=== PATIENT | male | born 2000 | race Caucasian/White ===

== ENCOUNTER 2024-03-23 11:44 | Emergency (ER) | payer BC, SELFPAY ==
[2024-03-23 11:51] VITALS: BP 118/72
--- NOTE | 2024-03-23 13:10 | ED.GENMED ---
History of Present Illness
<ENMA Bass - Last Filed: 03/23/24 16:23>
General
Chief Complaint: Medication Reaction
Source: patient
Exam Limitations: none
Time Seen by Provider: 03/23/24 12:45
Nursing documentation reviewed up to this point in time: agreed with
Travel History
Have you had any contact with someone who has COVID-19?: No
Do you have any symptoms of coronavirus? Fever > 100 degrees, chills, cough, shortness of breath, sore throat, loss of taste or smell, muscle aches, or headache?: No
History of Present Illness
History of Present Illness:
Patient is a 23-year-old male with past medical history of celiac, ulcerative colitis presents to the ER for evaluation. Patient complains of joint pain sore throat rash headache and fever since having infusion for ulcerative colitis yesterday.
He is presently treated with infliximab prescribed by his GI specialist. He initially had the first induction dose 5 weeks ago but then developed the same symptoms as today. 10 days after his first dose he had sore throat rash joint pain stiffness
headache and fevers just like today. He however was diagnosed with mono but they were not sure if it was mono and a combination of infliximab side effects. After patient's second dose yesterday and they did a full induction dose he has similar
symptoms again
Past History
<ENMA Bass - Last Filed: 03/23/24 16:23>
Past History
ED Past Medical History: None and Other (Ulcerative colitis, celiac sprue, wisdom teeth extraction)
ED Past Surgical History: None
Social History
Tobacco: Non-smoker
Alcohol: None
Drug: None
Family History
Family History: Other (Maternal grandmother with pancreatic cancer)
Phy Exam
<ENMA Bass - Last Filed: 03/23/24 16:23>
General Physical Exam
General Presentation: no apparent distress
General age: appears stated age
General Skin: warm and dry
General Habitus: normal
General Mental: alert
General Hydration: appears well hydrated
ENT Exam
ENT Exam: neck supple, pharyngeal erythema and other (No trismus no drooling)
Cardiovascular Exam
Cardiovascular Exam: tachycardia
Pulmonary Exam
Pulmonary Exam: lungs clear and no respiratory distress
Neurological Exam
Neurological Exam: alert and oriented x3
Wolf Coma Scale
Eye Opening: Spontaneous
Verbal Response: Oriented
Motor Response: Obeys Commands
GCS Total Score: 15
Musculoskeletal Exam
Musculoskeletal Exam: other (Pain with range of motion to the fingers, joints)
Skin Exam
Skin Exam: normal color, warm/dry and other (Nonspecific macular rash; no hives no itching)
Psychiatric Exam
Psychiatric Exam: normal mood/affect
<Jamarcus Barnard DO - Last Filed: 03/23/24 21:19>
Wolf Coma Scale
GCS Total Score: 15
Course
<ENMA Bass - Last Filed: 03/23/24 16:23>
Orders/Labs/Results
Orders:
Orders
03/23/24 13:25
IV Insert/Care/Rem.- Treatment PRN
03/23/24 13:35
Complete Blood Count/With Diff Urgent
Comprehensive Metabolic Panel Urgent
Sed Rate [Erythrocyte Sed Rate] Urgent
03/23/24 13:43
0.9% Sodium Chloride 1000 ml [Nss] 1,000 ml IV BOLUS
03/23/24 13:50
CRP [C-Reactive Protein] Urgent
Dexamethasone Sod Phosphate [Decadron] 10 mg IV NOW STA
03/23/24 13:51
Acetaminophen 1000MG/100Ml [Ofirmev] 1,000 mg in 100 ml IV ONCE
Acetaminophen IV Indication:: ED Narcotic Naive Pt-ONCE
Abnormal Lab Results
03/23/24 03/23/24
13:35 13:50
WBC 16.0 H 10^3/uL
(4.8-10.8)
MCV 78.0 L fL
(80.0-94.0)
Abs Immat Gran (auto) 0.1 H 10^3/uL
(0-0.05)
Absolute Neuts (auto) 11.8 H 10^3/uL
(1.4-6.5)
Absolute Monos (auto) 0.7 H 10^3/uL
(0.1-0.6)
Immature Gran % 0.6 H %
(0-0.5)
Lymphocytes % 20.3 L %
(20.5-51.1)
Sodium 134 L mmol/L
(135-145)
AST 129 H U/L
(17-59)
ALT 277 H U/L
(0-50)
Alkaline Phosphatase 749 H U/L
(38-126)
C-Reactive Protein 65.30 H mg/L
(0.0-10.00)
Albumin 3.4 L g/dl
(3.5-5.0)
03/23/24 13:35
03/23/24 13:35
Vital Signs
Initial and Last Documented VS:
Initial Vital Signs
Temp Pulse Resp BP Pulse Ox
100.3 F 113 20 118/72 99
03/23/24 11:51 03/23/24 11:51 03/23/24 11:51 03/23/24 11:51 03/23/24 11:51
Last Documented Vital Signs
Temp Pulse Resp BP Pulse Ox
100.3 F 110 20 118/76 99
03/23/24 11:51 03/23/24 16:22 03/23/24 16:22 03/23/24 16:22 03/23/24 16:22
Supply Service Worker consulted with Physician
Supply Service Worker consulted with physician?: Yes
Name of Physician Consulted: Ashley
<Jamarcus Barnard, DO - Last Filed: 03/23/24 21:19>
Orders/Labs/Results
Orders:
Orders
03/23/24 13:25
IV Insert/Care/Rem.- Treatment PRN
03/23/24 13:35
Complete Blood Count/With Diff Urgent
Comprehensive Metabolic Panel Urgent
Sed Rate [Erythrocyte Sed Rate] Urgent
03/23/24 13:43
0.9% Sodium Chloride 1000 ml [Nss] 1,000 ml IV BOLUS
03/23/24 13:50
CRP [C-Reactive Protein] Urgent
Dexamethasone Sod Phosphate [Decadron] 10 mg IV NOW STA
03/23/24 13:51
Acetaminophen 1000MG/100Ml [Ofirmev] 1,000 mg in 100 ml IV ONCE
Acetaminophen IV Indication:: ED Narcotic Naive Pt-ONCE
Abnormal Lab Results
03/23/24 03/23/24
13:35 13:50
WBC 16.0 H 10^3/uL
(4.8-10.8)
MCV 78.0 L fL
(80.0-94.0)
Abs Immat Gran (auto) 0.1 H 10^3/uL
(0-0.05)
Absolute Neuts (auto) 11.8 H 10^3/uL
(1.4-6.5)
Absolute Monos (auto) 0.7 H 10^3/uL
(0.1-0.6)
Immature Gran % 0.6 H %
(0-0.5)
Lymphocytes % 20.3 L %
(20.5-51.1)
Sodium 134 L mmol/L
(135-145)
AST 129 H U/L
(17-59)
ALT 277 H U/L
(0-50)
Alkaline Phosphatase 749 H U/L
(38-126)
C-Reactive Protein 65.30 H mg/L
(0.0-10.00)
Albumin 3.4 L g/dl
(3.5-5.0)
03/23/24 13:35
03/23/24 13:35
Vital Signs
Initial and Last Documented VS:
Initial Vital Signs
Temp Pulse Resp BP Pulse Ox
100.3 F 113 20 118/72 99
03/23/24 11:51 03/23/24 11:51 03/23/24 11:51 03/23/24 11:51 03/23/24 11:51
Last Documented Vital Signs
Temp Pulse Resp BP Pulse Ox
100.3 F 110 20 118/76 99
03/23/24 11:51 03/23/24 16:22 03/23/24 16:22 03/23/24 16:22 03/23/24 16:22
<ENMA Bass - Last Filed: 03/23/24 16:23>
MDM/Problems Addressed
Differential Diagnosis Includes:
not limited to: medication reaction viral syndrome ,mono
MDM/Problems Addressed:
Patient has documented had another induction level infusion of infliximab yesterday and complains of joint pain headache fevers rash. Patient had this same type of reaction after his first infusion with this. He is on this for ulcerative colitis
and followed by GI. Patient presents to the ER complaining of pain low-grade fever and mild erythematous rash. He has no difficulty breathing no lip or tongue swelling is nontoxic no short breath lungs clear. I spoke with GI they do report this
is likely a delayed reaction which occurs between 1 and 14 days. Patient was given IV Tylenol here for symptoms and also Decadron as recommended. As per GI we can treat patient with Tylenol 654 times a day and an antihistamine either Benadryl 50
daily or twice daily or second-generation such as loratadine 10.
Labs checked. Of note patient does have mono which was diagnosed several weeks ago and his LFTs are elevated. And in addition as per mom patient has a history of autoimmune hepatitis. Bilirubin normal. His white count is 16,000 his ESR is 20
normal kidney function and CRP elevated at 65. White count lightly react/stress response
I spoke with GI, Dr. Warren who recommended IV Decadron here patient was also given IV Tylenol here rash is improved. Patient still having some joint pain more so in his fingers. Will DC on steroid as per GI 40 mg, 30 mg, 20 mg, 10 mg 5 mg then
stop for 5 days.
Will hold off on oral Tylenol at home however because patient does have bump in LFTs
Will do antihistamine or Benadryl and steroids with close outpatient follow-up
Chronic conditions affecting care:
Autoimmune hepatitis, ulcerative colitis
<ENMA Bass - Last Filed: 03/23/24 16:23>
*Critical Care Note
Total Time (30-74mins, 75-104mins- exclusive of procedures): Not Applicable
<ENMA Bass - Last Filed: 03/23/24 16:23>
Patient Management
Discussion with other providers: [facility] (GI Dr Warren )
ED Attending Note
<ENMA Bass - Last Filed: 03/23/24 16:23>
-
Portions of this chart may have been created with voice recognition software.� Occasional wrong word or��sound alike� substitutions may have occurred due to the inherent limitations of voice recognition software.
<Jamarcus Barnard DO - Last Filed: 03/23/24 21:19>
ED Attending Note
I performed the substantive portion of visit, reviewed & personally made and approve the management plan that is documented in note by myself or LAURENCE.: Yes
Discharge Plan
Departure
Patient Disposition: Home (Routine Discharge)
Date of Disposition: 03/23/24
Time of Disposition: 16:17
Patient with high blood pressure during this ER visit?: No
Condition: Fair
Covid-19: Not Applicable
Discharge Problem:
medication reaction
Instructions: Adverse Drug Reactions, Adult ED
Prescriptions:
New
prednisone 10 mg tablet
10 mg PO DIRECTED Qty: 11 0RF
Rx Instructions:
40 mg day 1 followed by 30 mg day 2 followed by 20 mg day 3, 10 mg day 4 and 5 mg day 5
No Action
mesalamine [Lialda] 1.2 GM tablet,delayed release (DR/EC)
4.8 g PO DAILY
Patient Comments:
med list per order sheet from doctor's office
ursodiol 300 MG capsule
300 mg PO TID
cholecalciferol (vitamin D3) 2,000 UNITS tablet
5,000 units PO WEEKLY
Patient Comments:
D-3 50 Chol.
db-deh-ueqqa acid-lutein 1 EACH tablet,chewable
1 ea PO DAILY
Ib Ke Capsule
180 mg PO DAILY
simethicone [Gas-X Extra Strength] 125 MG tablet,chewable
125 mg PO DIRECTED
bisacodyl 5 MG tablet,delayed release (DR/EC)
10 mg PO DIRECTED
polyethylene glycol 3350 238 GM powder
238 gm PO DIRECTED
Referrals:
Marichuy New MD [Active] -
Teddy Durham MD [Family Provider] -
Activity Restrictions/Additional Instructions:
As discussed you may either take Benadryl 50 mg once or twice daily for another type of antihistamine such as loratadine 10 mg daily and in addition a prescription for steroids will be sent to your pharmacy to take daily for the next 5 days. Be
sure to stay well-hydrated. Follow-up with your family doctor as well as GI next week and return if any worsening of symptoms
Interventions
Interventions:
*Risk Screen - Suicide Last Done: 03/23/24 13:21
*General Assessment Last Done: 03/23/24 13:21
*Neglect/Abuse Screening Last Done: 03/23/24 13:21
ED- Fall Risk Assessment Last Done: 03/23/24 13:21
*ED COVID-19 Vaccine History Last Done: 03/23/24 11:51
*Nursing Disposition Last Done: 03/23/24 16:32
ED- Pulmonary Assessment Last Done: 03/23/24 13:21
Discharge Date and Time
Discharge Date/Time: 03/23/24 17:11
Print Language: PUERTO RICAN
[2024-03-23 13:21] VITALS: BP 121/78
[2024-03-23] MEDS: DECADRON 10 MG IV (13:53)
[2024-03-23] MEDS: NSS 1000 IV (13:53)
[2024-03-23 14:07] LABS: % Basophils 0.6 % (0-2); % Eosinophils 0.6 % (0-6); % Immature Granulocytes 0.6 % (0-0.5); % Lymphocytes 20.3 % (20.5-51.1); % Monocytes 4.5 % (1.7-9.3); % Neutrophils 73.4 % (42.2-75.2); Absolute Basophils 0.1 10^3/uL (0-0.2); Absolute Eosinophils 0.1 10^3/uL (0-0.7); Absolute Immature Granulocytes 0.1 10^3/uL (0-0.05); Absolute Lymphocytes 3.3 10^3/uL (1.2-3.4); Absolute Monocytes 0.7 10^3/uL (0.1-0.6); Absolute Neutrophils 11.8 10^3/uL (1.4-6.5); Hemoglobin 13.9 g/dL (13.0-18.0); Mean Corp Hgb Conc. 34.8 g/dL (33.0-37.0); Mean Corpuscular Hgb 27.1 pg (27.0-31.0); Mean Platelet Volume 10.3 fL (7.4-10.4); Nucleated Red Blood Cells % 0 % (-); Platelet Count 295 10^3/uL (130-400); Red Blood Cell Count 5.13 10^6/uL (4.70-6.10); Red Cell Dist. Width 12.4 % (11.5-14.5)
[2024-03-23] MEDS: OFIRMEV 100 IV (14:11)
[2024-03-23 14:20] VITALS: BP 123/71
[2024-03-23 14:24] LABS: ALT (SGPT) 277 U/L (0-50); AST (SGOT) 129 U/L (17-59); Albumin 3.4 g/dl (3.5-5.0); Alkaline Phosphatase 749 U/L (38-126); Blood Urea Nitrogen 9 mg/dl (9-20); Calcium 9.2 mg/dl (8.4-10.2); Carbon Dioxide 23 mmol/L (22-30); Chloride 103 mmol/L (98-107); Glucose 98 mg/dl (70-99); Sodium 134 mmol/L (135-145); Total Bilirubin 0.9 mg/dl (0.2-1.3); Total Protein 6.5 g/dl (6.3-8.2); eGFR > 60.00
[2024-03-23 15:26] LABS: Erythrocyte Sed Rate 20 mm/hour (0-20)
[2024-03-23 16:22] VITALS: BP 118/76
== END 2024-03-23 17:11 | disposition home or self-care (01) ==
LOC: EMR 11:44
PROVIDERS: Nurse Practitioner; EMERGENCY PHYSICIAN Emergency Medicine; FAMILY PHYSICIAN Internal Medicine
DX: R50.9 Fever, unspecified (principal); R21 Rash and other nonspecific skin eruption; M25.50 Pain in unspecified joint; T50.905A Adverse effect of unspecified drugs, medicaments and biological substances, initial encounter; K51.90 Ulcerative colitis, unspecified, without complications; K75.4 Autoimmune hepatitis
CPT/HCPCS: 99284; 96374; 96375; 96361; 80053; 85025; 85652; 86140

== ENCOUNTER 2025-04-03 06:12 | Day surgery (SDC) | payer OTHER, SELFPAY | END 2025-04-03 13:19 | disposition home or self-care (01) | LOC: GI 06:12 | PROVIDERS: ATTENDING PHYSICIAN Internal Medicine | DX: K51.00 Ulcerative (chronic) pancolitis without complications (principal) | CPT/HCPCS: 45380; 88305; 88342 ==